=== PATIENT | male | born 1985 | race American Indian/Alaskan Native ===

== ENCOUNTER 2018-04-16 13:01 | Emergency (ER) | payer OTHER ==
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
== END 2018-04-16 14:14 | disposition home or self-care (01) ==
LOC: ED 13:01